=== PATIENT | male | born 1995 | race Caucasian/White ===

== ENCOUNTER 2020-07-22 08:57 | Emergency (ER) | payer BC ==
--- NOTE | 2020-07-22 09:12 | EKG REPORT ---
SEVERITY:- NORMAL ECG - SINUS RHYTHM : Confirmed by: Tiffany Kasper MD 22-Jul-2020 09:10:31
--- NOTE | 2020-07-22 09:55 | ER Document Report ---
ED General - General Chief Complaint: Electrical Burn Stated Complaint: POSSIBLE ELECTROCUTION Time Seen by Provider: 07/22/20 09:51 Primary Care Provider: RAISSA HA MD [ACTIVE STAFF] - Follow up in 3-5 days (for cardiology follow up for palpitations and racing heart beat) NISHI NUNEZ DO [NO LOCAL MD] - Follow up in 1 week (for primary care follow up) - HPI Notes: 24-year-old male to the emergency department with complaints of racing heart and numbness to his right arm that began July 19 after he tried to install a new wade over his microwave. He states he thought that he had the electricity turned off at the breaker however when he was placing the wade he felt a "zap". Since then he has been experiencing a racing heart and numbness of the right arm. States he feels a little short of breath when he has the racing heart. He denies any fevers or chills. He does admit to focal tenderness of the left chest wall that gets worse with big deep breath. Denies any nausea or vomiting. Denies any diaphoresis. Denies any actual skin changes where he may have had a point of contact for electrocution. He does not take any medications. He does not smoke, drink, or do any illicit drugs. - Related Data Allergies/Adverse Reactions: No Known Allergies Allergy (Unverified 07/22/20 09:34) Past Medical History - General Information source: Patient - Social History Smoking Status: Never Smoker Chew tobacco use (# tins/day): No Frequency of alcohol use: None Drug Abuse: None Family History: Reviewed & Not Pertinent Patient has homicidal ideation: No Review of Systems - Review of Systems Constitutional: denies: Chills, Fever EENT: No symptoms reported Cardiovascular: See HPI, Chest pain, Palpitations, Heart racing Respiratory: See HPI, Hurts to breathe, Short of breath. denies: Cough Gastrointestinal: denies: Abdominal pain, Diarrhea, Nausea, Vomiting Musculoskeletal: No symptoms reported Skin: No symptoms reported Hematologic/Lymphatic: No symptoms reported Neurological/Psychological: Tingling - Intermittent tingling to the right elbow area -: Yes All other systems reviewed and negative Physical Exam - Vital signs Vitals: Temp Pulse Resp BP Pulse Ox 97.8 F 94 20 150/90 H 98 07/22/20 09:06 07/22/20 09:06 07/22/20 09:06 07/22/20 09:06 07/22/20 09:06 Interpretation: Normal - General General appearance: Appears well, Alert In distress: None - HEENT Head: Normocephalic, Atraumatic Eyes: Normal Pupils: PERRL Ears: Normal External canal: Normal Tympanic membrane: Normal. No: Bulging, Hemotympanum, Perforation Sinus: Normal Nasal: Normal Mouth/Lips: Normal. No: Angioedema Mucous membranes: Normal Pharynx: Normal. No: Potential airway comprom. Neck: Normal, Supple. No: Lymphadenopathy - Respiratory Respiratory status: No respiratory distress Chest status: Nontender, Pain with deep breathing. No: Accessory muscle use, Prolonged expirations Breath sounds: Normal. No: Rales, Rhonchi, Wheezing Chest palpation: Tender - Mild tenderness to palpation over the left anterior chest wall with no crepitus or step-off - Cardiovascular Rhythm: Regular Heart sounds: Normal auscultation Murmur: No Notes: No pedal edema, no friction rub - Abdominal Inspection: Normal Distension: No distension Bowel sounds: Normal Tenderness: Nontender. No: Tender, McBurney's point, Matos's sign, Guarding Organomegaly: No organomegaly - Back Back: Normal, Nontender - Extremities General upper extremity: Normal inspection, Nontender, Normal color, Normal ROM, Normal temperature General lower extremity: Normal inspection, Nontender, Normal color, Normal ROM, Normal temperature, Normal weight bearing - Neurological Neuro grossly intact: Yes Cognition: Normal Orientation: AAOx4 [place] Coma Scale Eye Opening: Spontaneous [place] Coma Scale Verbal: Oriented [place] Coma Scale Motor: Obeys Commands [place] Coma Scale Total: 15 Speech: Normal Cranial nerves: Normal. No: Facial palsy, Tongue deviation Cerebellar coordination: Normal. No: Gait ataxia Motor strength normal: LUE, RUE, LLE, RLE Additional motor exam normals: Equal roll over loader. No: Pronator drift Sensory: Normal - Psychological Associated symptoms: Normal affect, Normal mood - Skin Skin Temperature: Warm Skin Moisture: Dry Skin Color: Normal Skin irregularity: negative: Lesion, Rash Course - Re-evaluation Re-evalutation: 07/22/20 Impression: Palpitations, heart racing, possible electrical shock injury. Patient with very reassuring labs, chest x-ray, EKG. He has not been in a tachyarrhythmia since arrival. His troponin is negative, his CK is negative, his electrolytes are all reassuring. His TSH is negative. Plan will be to follow-up with outpatient cardiology for further evaluation for heart racing and palpitations. Encouraged him to return if he has any worsening symptoms. Patient agrees with plan. - Vital Signs Vital signs: Temp Pulse Resp BP Pulse Ox 97.8 F 94 20 127/89 H 98 07/22/20 09:06 07/22/20 09:06 07/22/20 12:16 07/22/20 12:16 07/22/20 12:16 - Laboratory Result Diagrams: 07/22/20 10:25 07/22/20 10:25 - Diagnostic Test Radiology reviewed: Image reviewed, Reports reviewed - EKG Interpretation by Me Additional EKG results interpreted by me: 07/22/20 11:48 Rate: 92 Rhythm: normal sinus rhythm Interpretation: No STEMI, no T wave inversions, no diffuse peaked T waves, normal axis, no LVH. No prior for comparison Discharge - Discharge Clinical Impression: Palpitations, Electrical shock sensation Condition: Stable Disposition: HOME, SELF-CARE Instructions: Palpitations (Irregular or Rapid Heartrate) ([facility]) Additional Instructions: Today your evaluated for racing heart, palpitations, right arm numbness that started after you had a possible electrical shock injury. Your labs today all look very well. Your EKG is reassuring. Your chest x-ray did not show any abnormalities. Please follow-up with [facility] for further evaluations for racing heart. Return if you have worsening symptoms. Rest at home. Forms: Return to Work Referrals: RAISSA HA MD [ACTIVE STAFF] - Follow up in 3-5 days (for cardiology follow up for palpitations and racing heart beat) NISHI NUNEZ DO [NO LOCAL MD] - Follow up in 1 week (for primary care follow up)
--- NOTE | 2020-07-22 10:38 | RADIOLOGY REPORT (SQ) ---
EXAM DESCRIPTION: CHEST SINGLE VIEW IMAGES COMPLETED DATE/TIME: 07/22/2020 10:17 am REASON FOR STUDY: palpitations COMPARISON: None. NUMBER OF VIEWS: One view. TECHNIQUE: Single frontal radiographic view of the chest acquired. LIMITATIONS: None. FINDINGS: LUNGS AND PLEURA: No opacities, masses or pneumothorax. No pleural effusion. MEDIASTINUM AND HILAR STRUCTURES: No masses. Contour normal. HEART AND VASCULAR STRUCTURES: Heart normal in size. Normal vasculature. BONES: No acute findings. HARDWARE: None in the chest. OTHER: No other significant finding. IMPRESSION: NO SIGNIFICANT RADIOGRAPHIC FINDING IN THE CHEST. TECHNICAL DOCUMENTATION: JOB ID: [id number] 2010 [employer]- All Rights Reserved Reading location - IP/workstation name: [email or web address]
[2020-07-22 10:47] LABS: ABSOLUTE LYMPHOCYTES (AUTO) 2.5 10^3/uL (0.5-4.7); ABSOLUTE MONOCYTES (AUTO) 0.8 10^3/uL (0.1-1.4); BASOPHILS % (AUTO) 0.4 % (0-2); EOSINOPHILS % (AUTO) 0.4 % (0-6); HEMATOCRIT 42.5 % (37.9-51.0); HEMOGLOBIN 14.5 g/dL (13.5-17.0); LYMPHOCYTES % (AUTO) 26.5 % (13-45); MEAN CORPUSCULAR HEMOGLOBIN 28.7 pg (27.0-33.4); MEAN CORPUSCULAR VOLUME 84 fl (80-97); PLATELET COUNT 268 10^3/uL (150-450); RED BLOOD COUNT 5.04 10^6/uL (4.35-5.55); RED CELL DISTRIBUTION WIDTH 13.8 % (11.5-14.0); SEGMENTED NEUTROPHILS % (AUTO) 63.7 % (42-78); TOTAL CELLS COUNTED % (AUTO) 100 %; WHITE BLOOD COUNT 9.4 10^3/uL (4.0-10.5)
[2020-07-22 10:53] LABS: PROTHROMBIN TIME 13.4 SEC (11.4-15.4)
[2020-07-22 11:10] LABS: ALBUMIN 4.2 g/dL (3.5-5.0); ALKALINE PHOSPHATASE 101 U/L (38-126); ANION GAP 9 (5-19); ASPARTATE AMINO TRANSFERASE 29 U/L (17-59); BILIRUBIN,DIRECT 0.2 mg/dL (0.0-0.4); BILIRUBIN,TOTAL 0.6 mg/dL (0.2-1.3); BLOOD UREA NITROGEN 15 mg/dL (7-20); CALCIUM 9.2 mg/dL (8.4-10.2); CARBON DIOXIDE 27 mmol/L (22-30); CHLORIDE 104 mmol/L (98-107); CREATINE KINASE 106 U/L (55-170); GLUCOSE 86 mg/dL (75-110); POTASSIUM 3.8 mmol/L (3.6-5.0); TOTAL PROTEIN 7.1 g/dL (6.3-8.2)
[2020-07-22 12:38] VITALS: BP 127/89
== END 2020-07-22 12:44 | disposition home or self-care (01) ==
LOC: ER 08:57
DX: R00.2 Palpitations (principal); R20.0 Anesthesia of skin; R20.2 Paresthesia of skin; R06.02 Shortness of breath; R07.1 Chest pain on breathing; R09.89 Other specified symptoms and signs involving the circulatory and respiratory systems
CPT/HCPCS: 36415; 71045; 80053; 82550; 83735; 84443; 84484; 85025; 85610; 85730; 93005; 93010; 99285